=== PATIENT | female | born 1960 | race Two or more races ===

== ENCOUNTER 2017-12-15 15:01 | Emergency (ER) | payer OTHER ==
[~2017-12-15] VITALS: Ht 157.5 cm; Wt 43.1 kg
[~2017-12-15 15:01] MED LIST: AMOX500 PO; Bactrim Ds Tab1 EACH PO; CEPH500 PO; CHLO25 PO; CIPR250 PO; CIPR500 PO; CODGUAEL PO; CYCL10 PO; DOCU100 PO; FLUC150A PO; Ferrous Sulfat325 MG PO; HYDACE5 PO; IBUP400 PO; IBUP800 PO; LISI5 PO; Lisinopril2.5 MG; NALT50; OXYACE5T PO; PANT40 PO; PROM25 PO; QUET25 PO; RXPROM25 PO; TRAM50 PO; TRAZ50; Ultram50 MG PO; Zofran Odt4 MG SL; Zofran Odt8 MG SL; [UNRECOGNIZED DRUG - OTHER]
[2017-12-15] MEDS ORDERED: Pyridium200 MG PO (15:47)
[2017-12-15] MEDS ORDERED: CEPH500 PO (15:47)
== END 2017-12-15 15:57 | disposition home or self-care (01) ==
LOC: ER 15:01
DX: N39.0 Urinary tract infection, site not specified (principal); E11.9 Type 2 diabetes mellitus without complications; F17.210 Nicotine dependence, cigarettes, uncomplicated
CPT/HCPCS: 99283

== ENCOUNTER 2018-03-23 21:33 | Emergency (ER) | payer OTHER ==
[~2018-03-23] VITALS: Ht 154.9 cm; Wt 45.4 kg
[~2018-03-23 21:33] MED LIST changes: +Pyridium200 MG PO
== END 2018-03-24 02:15 | disposition home or self-care (01) ==
LOC: ER 21:33
DX: F19.10 Other psychoactive substance abuse, uncomplicated (principal); E11.9 Type 2 diabetes mellitus without complications; F17.210 Nicotine dependence, cigarettes, uncomplicated; Z88.5 Allergy status to narcotic agent; Z88.0 Allergy status to penicillin
CPT/HCPCS: 73502; 99283

== ENCOUNTER 2018-08-01 14:54 | Emergency (ER) | payer OTHER ==
[~2018-08-01] VITALS: Ht 154.9 cm; Wt 40.8 kg
== END 2018-08-01 15:18 | disposition left against medical advice (07) ==
LOC: ER 14:54
DX: F10.129 Alcohol abuse with intoxication, unspecified (principal); E11.9 Type 2 diabetes mellitus without complications; F17.210 Nicotine dependence, cigarettes, uncomplicated
CPT/HCPCS: 99284

== ENCOUNTER 2019-01-20 17:07 | Emergency (ER) | payer OTHER ==
[~2019-01-20] VITALS: Ht 152.4 cm; Wt 56.7 kg
[2019-01-20 17:59] LABS: Anion Gap 5 mmol/L (6-16); Blood Urea Nitrogen 10 mg/dL (8-24); Bun/Creatinine Ratio 18.2 (12.0-20.0); CO2, Blood 26 mmol/L (21-32); Calcium, Blood 8.2 mg/dL (8.5-10.1); Chloride, Blood 112 mmol/L (98-108); Creatinine, Blood 0.55 mg/dL (0.40-1.00); Glomerular Filtration Rate >60 (60-); Glucose, Blood 92 mg/dL (70-99); Potassium, Blood 3.6 mmol/L (3.5-5.5); Sodium, Blood 143 mmol/L (136-145)
== END 2019-01-20 20:15 | disposition home or self-care (01) ==
LOC: ER 17:07
PROVIDERS: Emergency Medicine
DX: F10.129 Alcohol abuse with intoxication, unspecified (principal); F41.9 Anxiety disorder, unspecified; E78.5 Hyperlipidemia, unspecified; E11.9 Type 2 diabetes mellitus without complications; F17.210 Nicotine dependence, cigarettes, uncomplicated; Z85.3 Personal history of malignant neoplasm of breast
CPT/HCPCS: 36415; 80048; 99284

== ENCOUNTER 2019-05-17 22:38 | Emergency (ER) | payer OTHER ==
[~2019-05-17] VITALS: Ht 157.5 cm; Wt 49.9 kg
[2019-05-17 23:00] LABS: BASOPHILS ABSOLUTE AUTO 0.04 K/mm3 (0.00-0.23); BASOPHILS PERCENT AUTO 1 % (0-2); EOSINOPHILS ABSOLUTE AUTO 0.05 K/mm3 (0.00-0.68); EOSINOPHILS PERCENT AUTO 1 % (0-6); Hematocrit 38.8 % (33.0-51.0); Hemoglobin 12.6 g/dL (11.5-16.0); IMMATURE GRAN ABSOLUTE AUTO 0.01 K/mm3 (0.00-0.10); IMMATURE GRAN PERCENT AUTO 0 % (0-1); LYMPHOCYTES PERCENT AUTO 59 % (21-46); MONOCYTES ABSOLUTE AUTO 0.38 K/mm3 (0.16-1.47); MONOCYTES PERCENT AUTO 7 % (4-13); Mean Corpuscular HGB 30.1 pg (26.0-34.0); Mean Corpuscular HGB Conc 32.5 g/dL (31.5-36.5); Mean Corpuscular Volume 93 fL (80-100); Mean Platelet Volume 9.4 fL (9.1-12.4); NEUTROPHILS ABSOLUTE AUTO 1.65 K/mm3 (1.96-9.15); NEUTROPHILS PERCENT AUTO 31 % (41-73); Platelet Count 217 K/mm3 (150-400); RDW Coefficient Variation 14.2 % (11.7-14.2); RDW Standard Deviation 48.6 fL (35.1-46.3); Red Blood Cell Count 4.18 M/mm3 (3.80-5.20); White Blood Cell Count 5.23 K/mm3 (4.00-11.30)
[2019-05-18] LABS: CPK Creatine Kinase 50 U/L (26-193); Creatine Kinase MB 1.3 ng/mL (0.0-3.6); Creatine Kinase MB Index 2.6 (0.0-4.0); Ethanol (Alcohol), Blood, Med 174 mg/dL
[2019-05-18 00:01] LABS: Alanine Aminotransfer (ALT/SGP 29 U/L (12-78); Albumin, Blood 3.2 g/dL (3.4-5.0); Albumin/Globulin Ratio 0.8 (0.8-1.8); Alk Phos 90 U/L (50-136); Anion Gap 7 mmol/L (6-16); Aspartate Aminotrans (AST/SGOT 27 U/L (12-37); Bilirubin, Total 0.2 mg/dL (0.1-1.0); Blood Urea Nitrogen 11 mg/dL (8-24); CO2, Blood 29 mmol/L (21-32); Calcium, Blood 8.7 mg/dL (8.5-10.1); Chloride, Blood 105 mmol/L (98-108); Creatinine, Blood 0.58 mg/dL (0.40-1.00); Globulin, Blood 3.8 g/dL (2.2-4.0); Glomerular Filtration Rate >60 (60-); Glucose, Blood 80 mg/dL (70-99); Potassium, Blood 4.1 mmol/L (3.5-5.5); Sodium, Blood 141 mmol/L (136-145)
[2019-05-18 00:16] LABS: U Amphetamine Screen Not Detected; U Barbituate Screen Not Detected; U Benzodiazapine Screen DETECTED; U Buprenorphine Screen Not Detected; U Cannabinoids Screen Not Detected; U Cocaine Screen Not Detected; U Methadone Screen Not Detected; U Methamphetamine Screen Not Detected; U Opiates Screen Not Detected; U Oxycodone Screen Not Detected; U Phencyclidine Screen Not Detected; U Propoxyphene Screen Not Detected
== END 2019-05-18 01:16 | disposition home or self-care (01) ==
LOC: ER 22:38
PROVIDERS: Emergency Medicine
DX: S01.81XA Laceration without foreign body of other part of head, initial encounter (principal); W18.30XA Fall on same level, unspecified, initial encounter; Z88.0 Allergy status to penicillin; Z88.8 Allergy status to other drugs, medicaments and biological substances; Z88.5 Allergy status to narcotic agent; F17.210 Nicotine dependence, cigarettes, uncomplicated; E11.9 Type 2 diabetes mellitus without complications; I10 Essential (primary) hypertension; Z85.3 Personal history of malignant neoplasm of breast; Z86.73 Personal history of transient ischemic attack (TIA), and cerebral infarction without residual deficits
CPT/HCPCS: 12001; 70450; 72125; 80053; 82550; 82553; 83605; 85025; 90471; 90714; 96374-59; 99284-25; G0480; J2405

== ENCOUNTER 2019-05-25 17:55 | Emergency (ER) | payer OTHER ==
[~2019-05-25] VITALS: Ht 157.5 cm; Wt 43.1 kg
== END 2019-05-25 18:17 | disposition home or self-care (01) ==
LOC: ER 17:55
DX: S01.81XD Laceration without foreign body of other part of head, subsequent encounter (principal); Z88.0 Allergy status to penicillin; Z88.5 Allergy status to narcotic agent; F17.210 Nicotine dependence, cigarettes, uncomplicated; E11.9 Type 2 diabetes mellitus without complications; Z85.3 Personal history of malignant neoplasm of breast; E78.00 Pure hypercholesterolemia, unspecified
CPT/HCPCS: 99282

== ENCOUNTER → 2019-09-12 | Outpatient (CLI) | payer OTHER ==
[~2019-09-12] MED LIST changes: +BENADRYL25 MG PO; +Pepcid40 MG PO; +Prednisone20 MG PO
[2019-09-12 09:39] LABS: BASOPHILS ABSOLUTE AUTO 0.04 K/mm3 (0.00-0.23); BASOPHILS PERCENT AUTO 1 % (0-2); EOSINOPHILS ABSOLUTE AUTO 0.07 K/mm3 (0.00-0.68); EOSINOPHILS PERCENT AUTO 1 % (0-6); Hemoglobin 13.5 g/dL (11.5-16.0); IMMATURE GRAN ABSOLUTE AUTO 0.02 K/mm3 (0.00-0.10); IMMATURE GRAN PERCENT AUTO 0 % (0-1); LYMPHOCYTES ABSOLUTE AUTO 1.36 K/mm3 (0.84-5.20); LYMPHOCYTES PERCENT AUTO 27 % (21-46); MONOCYTES PERCENT AUTO 6 % (4-13); Mean Corpuscular HGB 30.6 pg (26.0-34.0); Mean Corpuscular HGB Conc 32.9 g/dL (31.5-36.5); Mean Corpuscular Volume 93 fL (80-100); NEUTROPHILS ABSOLUTE AUTO 3.22 K/mm3 (1.96-9.15); NEUTROPHILS PERCENT AUTO 64 % (41-73); Platelet Count 322 K/mm3 (150-400); RDW Coefficient Variation 13.2 % (11.7-14.2); RDW Standard Deviation 44.6 fL (35.1-46.3); Red Blood Cell Count 4.41 M/mm3 (3.80-5.20); White Blood Cell Count 5.01 K/mm3 (4.00-11.30)
[2019-09-12 09:57] LABS: Alanine Aminotransfer (ALT/SGP 23 U/L (12-78); Albumin, Blood 3.7 g/dL (3.4-5.0); Alk Phos 124 U/L (40-126); Anion Gap 4 mmol/L (6-16); Aspartate Aminotrans (AST/SGOT 28 U/L (12-37); Bilirubin, Total 0.6 mg/dL (0.1-1.0); Blood Urea Nitrogen 14 mg/dL (8-24); Bun/Creatinine Ratio 18.4 (12.0-20.0); CO2, Blood 33 mmol/L (21-32); Calcium, Blood 8.8 mg/dL (8.5-10.1); Chloride, Blood 105 mmol/L (98-108); Creatinine, Blood 0.76 mg/dL (0.40-1.00); Free Thyroxine 1.09 ng/dL (0.70-1.60); Globulin, Blood 3.6 g/dL (2.2-4.0); Glomerular Filtration Rate >60 (60-); Glucose, Blood 97 mg/dL (70-99); Potassium, Blood 3.8 mmol/L (3.5-5.5); Sodium, Blood 142 mmol/L (136-145); Thyroid Stimulating Hormone 3.519 uIU/mL (0.360-4.800); Total Protein, Blood 7.3 g/dL (6.4-8.2)
[2019-09-13 08:07] LABS: HBSAG SCREEN Negative (Negative); HEP A AB, IGM Negative (Negative); HEP B CORE AB, IGM Negative (Negative); HEP C VIRUS AB >11.0 (0.0-0.9); HIV SCREEN 4TH GENERATION WRFX Non Reactive (Non Reactive)
[2019-09-17 07:08] LABS: CHLAMYDIA BY NAA Negative (Negative); GONOCOCCUS BY NAA Negative (Negative); TRICH VAG BY NAA Negative (Negative)
== END | disposition home or self-care (01) ==
LOC: LAB SHORT 09:33 → LAB EV 09:33
PROVIDERS: General Practice
DX: N76.0 Acute vaginitis (principal); R53.81 Other malaise; Z20.9 Contact with and (suspected) exposure to unspecified communicable disease
CPT/HCPCS: 80053; 80074; 83690; 84439; 84443; 85025; 86592; 87389; 87491; 87591; 87661

== ENCOUNTER 2019-09-25 17:39 | Emergency (ER) | payer OTHER ==
[~2019-09-25] VITALS: Ht 157.5 cm; Wt 42.6 kg
[~2019-09-25 17:39] MED LIST changes: -BENADRYL25 MG PO; -Pepcid40 MG PO; -Prednisone20 MG PO
[2019-09-25] MEDS ORDERED: BENADRYL25 MG PO (20:14)
[2019-09-25] MEDS ORDERED: Prednisone20 MG PO (20:14)
[2019-09-25] MEDS ORDERED: Pepcid40 MG PO (20:14)
== END 2019-09-25 20:32 | disposition home or self-care (01) ==
LOC: ER 17:39
DX: L50.9 Urticaria, unspecified (principal); M16.11 Unilateral primary osteoarthritis, right hip; F41.9 Anxiety disorder, unspecified; E11.9 Type 2 diabetes mellitus without complications; E78.00 Pure hypercholesterolemia, unspecified; F17.210 Nicotine dependence, cigarettes, uncomplicated; Z88.0 Allergy status to penicillin; Z88.5 Allergy status to narcotic agent; Z88.6 Allergy status to analgesic agent
CPT/HCPCS: 36415; 73502; 99283-25; J1100; Q0163

== ENCOUNTER 2021-03-18 14:32 | Emergency (ER) | payer OTHER ==
[~2021-03-18] VITALS: Ht 157.5 cm; Wt 45.4 kg
[~2021-03-18 14:32] MED LIST changes: +BENADRYL25 MG PO; +Pepcid40 MG PO; +Prednisone20 MG PO
== END 2021-03-18 17:26 | disposition left against medical advice (07) ==
LOC: ER 14:32
DX: M25.551 Pain in right hip (principal); G89.29 Other chronic pain; E11.9 Type 2 diabetes mellitus without complications; I10 Essential (primary) hypertension; F17.210 Nicotine dependence, cigarettes, uncomplicated; Z88.0 Allergy status to penicillin; Z88.5 Allergy status to narcotic agent; Z79.52 Long term (current) use of systemic steroids
CPT/HCPCS: 73502; 99284-25; A9270

== ENCOUNTER → 2021-12-14 | Outpatient (CLI) | payer OTHER | END | disposition home or self-care (01) | LOC: LAB SHORT 13:16 | DX: N39.0 Urinary tract infection, site not specified (principal) | CPT/HCPCS: 87077; 87086; 87186 ==

== ENCOUNTER 2022-02-07 10:16 | Emergency (ER) | payer OTHER ==
[~2022-02-07] VITALS: Ht 157.5 cm; Wt 45.4 kg
== END 2022-02-07 14:16 | disposition home or self-care (01) ==
LOC: ER 10:16
DX: S52.502A Unspecified fracture of the lower end of left radius, initial encounter for closed fracture (principal); X58.XXXA Exposure to other specified factors, initial encounter
CPT/HCPCS: 73110; 73562-RT; J1885

== ENCOUNTER → 2022-07-28 | Outpatient (CLI) | payer OTHER | END | disposition home or self-care (01) | LOC: LAB 16:25 → LAB SHORT 16:25 | DX: N39.0 Urinary tract infection, site not specified (principal) | CPT/HCPCS: 87077; 87086; 87147; 87186 ==

== ENCOUNTER → 2023-06-20 | Outpatient (CLI) | payer OTHER | LOC: LAB SHORT 15:21 → LAB 15:21 | DX: L03.113 Cellulitis of right upper limb (principal) | CPT/HCPCS: 87070; 87077; 87147; 87186; 87205 ==

== ENCOUNTER → 2024-09-19 | Outpatient (CLI) | payer OTHER ==
[~2024-09-19] MED LIST changes: +Acetaminophen500 MG PO; +IBUP600 PO
== END ==
LOC: LAB SHORT 17:09 → LAB 17:09
DX: R30.0 Dysuria (principal)
CPT/HCPCS: 87086

== ENCOUNTER 2025-02-10 08:45 | Inpatient (IN) | payer OTHER ==
[~2025-02-10] VITALS: Ht 157.5 cm; Wt 53.5 kg
[2025-02-10] VITALS (10 sets, daily range): BP systolic 91–125; BP diastolic 80–107
[2025-02-10] MEDS ORDERED: Adenosine 3 MG/ML 2 ML Vial ONE (08:56)
[2025-02-10] MEDS ORDERED: NS 1,000 ML IV ONE (08:56)
[2025-02-10] MEDS ORDERED: NS 1,000 ML IV SCH (09:05)
[2025-02-10] MEDS ORDERED: Piperacillin/Tazobactam Sod 4.5 GM in NS 100 ML IV ONE (09:45)
[2025-02-10] MEDS ORDERED: Vancomycin HCL 1,250 MG in NS 250 ML IV ONE (09:50)
[2025-02-10 10:04] LABS: BASOPHILS ABSOLUTE AUTO 0.04 K/mm3 (0.00-0.23); BASOPHILS PERCENT AUTO 0 % (0-2); EOSINOPHILS ABSOLUTE AUTO 0.01 K/mm3 (0.00-0.68); EOSINOPHILS PERCENT AUTO 0 % (0-6); Hematocrit 41.4 % (33.0-51.0); Hemoglobin 13.6 g/dL (11.5-16.0); IMMATURE GRAN ABSOLUTE AUTO 0.05 K/mm3 (0.00-0.10); IMMATURE GRAN PERCENT AUTO 0 % (0-1); LYMPHOCYTES ABSOLUTE AUTO 0.99 K/mm3 (0.84-5.20); LYMPHOCYTES PERCENT AUTO 9 % (21-46); MONOCYTES ABSOLUTE AUTO 0.92 K/mm3 (0.16-1.47); MONOCYTES PERCENT AUTO 8 % (4-13); Mean Corpuscular HGB 29.2 pg (26.0-34.0); Mean Corpuscular HGB Conc 32.9 g/dL (31.5-36.5); Mean Corpuscular Volume 89 fL (80-100); Mean Platelet Volume 10.4 fL (9.1-12.4); NEUTROPHILS ABSOLUTE AUTO 9.36 K/mm3 (1.96-9.15); NEUTROPHILS PERCENT AUTO 82 % (41-73); Platelet Count 241 K/mm3 (150-400); RDW Coefficient Variation 15.1 % (11.7-14.2); RDW Standard Deviation 48.1 fL (35.1-46.3); Red Blood Cell Count 4.65 M/mm3 (3.80-5.20); White Blood Cell Count 11.37 K/mm3 (4.00-11.30)
[2025-02-10 10:23] LABS: International Normalized Ratio 1.36; Prothrombin Time Results 14.2 Sec (9.7-11.5)
[2025-02-10 10:25] LABS: Magnesium, Blood 1.5 mg/dL (1.6-2.4)
[2025-02-10 10:26] LABS: Albumin, Blood 2.4 g/dL (3.4-5.0); Albumin/Globulin Ratio 0.8 (0.8-1.8); Bilirubin, Total 1.2 mg/dL (0.1-1.0); Bun/Creatinine Ratio 32.4 (12.0-20.0); Calcium, Blood 8.2 mg/dL (8.5-10.1); Creatinine, Blood 0.65 mg/dL (0.40-1.00); Globulin, Blood 3.2 g/dL (2.2-4.0); Potassium, Blood 4.3 mmol/L (3.5-5.5); Total Protein, Blood 5.6 g/dL (6.4-8.2)
[2025-02-10 10:47] LABS: Influenza A, PCR NEGATIVE (NEGATIVE); Influenza B, PCR NEGATIVE (NEGATIVE); Resp Syncytial Virus, PCR NEGATIVE (NEGATIVE); SARS-Cov-2 (COVID-19) PCR, MMC NEGATIVE (NEGATIVE)
[2025-02-10] MEDS ORDERED: Morphine Sulfate 4 MG/1 ML Injection IV ONE (11:25)
[2025-02-10] MEDS ORDERED: Acetaminophen 325 MG TABLET PO PRN (11:35)
[2025-02-10] MEDS ORDERED: Ondansetron 4 MG TAB PO PRN (11:40)
[2025-02-10] MEDS ORDERED: Magnesium Hydroxide Conc 10 ML UDC PO PRN (11:40)
[2025-02-10] MEDS ORDERED: FentaNYL Citrate 50 MCG/ML 2 ML Injection IV PRN (11:40)
[2025-02-10 11:42] LABS: Anti-Xa UFH, PHA Monitoring <0.10 IU/mL
[2025-02-10] MEDS ORDERED: Heparin Sodium 5000 Units/ML 1ML MDV IV ONE (12:05)
[2025-02-10] MEDS ORDERED: Mag Sulfate 1 GM/D5% 100ML 100 ML IV STA (12:05)
[2025-02-10] MEDS ORDERED: Heparin Sodium,Porcine/0.5 NS 500 ML IV SCH (12:05)
[2025-02-10] MEDS ORDERED: Lactated Ringer's 1,000 ML IV SCH (13:00)
[2025-02-10] MEDS ORDERED: Magnesium Sulf 2 GM/Water 50ML 50 ML IV ONE (13:55)
[2025-02-10] MEDS ORDERED: Empagliflozin 10 MG TAB PO SCH (15:00)
[2025-02-10] MEDS ORDERED: Furosemide 10 MG / ML 2ML Vial IV ONE (16:00)
[2025-02-10] MEDS ORDERED: Azithromycin 500 MG in NS 250 ML IV SCH (16:48)
--- NOTE | 2025-02-10 17:15 | NUR ---
Pt. is awke in her bed when she welomced my visit. Pt. is pleasant. Daughter is at bedside. Facilitated a life review and listened with empathy and a calming presence. Considered matters of kavya and belief. Pt. and daughter verbalized that they recognized this patch driller from a scientologist in the community. Pt. displayed evidence of being alert and aware. Prayed with the Pt. adn daughter. Pt. verbalized gratitude for the spiritual care visit and welcomed this patch driller to return.
[2025-02-10] MEDS ORDERED: LORazepam 2 MG/ML 1ML Injection ONE (17:56)
[2025-02-10] MEDS ORDERED: CefTRIAXone Sodium 1,000 MG in NS 100 ML IV SCH (18:00)
[2025-02-10] MEDS ORDERED: Tenecteplase 50 MG / Kit IV ONE (18:05)
--- NOTE | 2025-02-10 18:46 | NUR ---
Code Blue | Spiritual Care | TOD Pt. had coded. This flexo folder gluer operator was directed to the daughter who displayed evidence of extreme emotion. Daughter was not responsive to spiritual care or empathetic nursing care. Daughter gather Pts. belongings, left a phone number and verbalized "call be if she lives." This flexo folder gluer operator and palliative care nurse pursued the daughter on foot until she left the hospital campus. Upon returning to bedside, where the hospital code team was still working on the Pt. Prayers were made for the Pt. EULALIA was called at [phone]. No family were present.
--- NOTE | 2025-02-10 18:47 | NUR ---
RESPONDED TO CODE BLUE. CPR IN PROGRESS ON ARRIVAL. DAUGHTER ROBYN PRESENT. ROBYN WAS LEFT HER PHONE NUMBER WITH STAFF STATING "CALL ME IF SHE LIVES", THEN WALKED BRISKLY FROM ICU FLOOR. INSTRUMENT AND CONTROL SERVICE PERSON AND THIS RN ATTEMPTED TO TALK TO ROBYN BUT SHE WOULD NOT STOP WALKING WHEN REQUESTED TO WAIT. FOLLOWED ROBYN OUT OF CONCERN FOR HER SHE WAS YELLING LOUDLY AND CRYING. ROBYN WALKED OUT OF HOSPITAL FROM ADMITTING ENTRY AND SECURITY SAW US FOLLOWING AND REQUESTED IF THEY SHOULD BEADWORKER WALKING AWAY FROM US. BRIEFLY EXPLAINED WE WERE TRYING TO TALK TO HER. SECURITY WERE IN A ELECTRIC CART AND CAUGHT UP TO HER BUT SHE CONTINUED TO REFUSE TO STOP. ROBYN WALKED OFF PROPERTY GROUNDS. WAS UNABLE TO CONTACT ROBYN BY PHONE NUMBER SHE LEFT.
--- NOTE | 2025-02-10 18:55 | NUR ---
SHIFT SUMMARY/CODE BLUE PT ARRIVED FROM ER ALERT AND ORIENTED COMMUNICATING APPROPRIATELY W STAFF. PT REPORTING MILD CHEST PAIN UPON ARRIVAL THAT SHE STATED WAS UNCHANGED SINCE ARRIVING TO THE HOSPITAL. PT MAINTAINING SPO2 >92% ON 2L NC. PT ARRIVED W MOTTLING ON BILATERAL KNEES EXTENDING SEVERAL INCHES UP HER THIGH. PT'S MONITOR SHOWING ST 100-130 W ACTIVITY. BP WNL AND STABLE. PT'S DAUGHTER HAD ARRIVED SHORTLY AFTER THE PT'S ARRIVAL TO ICU. PT'S DAUGHTER UPDATED ON PT'S CONDITION AND THE TREATMENT PLAN. PT GIVEN DINNER TRAY AND SHORTLY INTO HER MEAL THE PT BEGAN TO C/O NAUSEA, PT MEDICATED W ZOFRAN BY KILN DRAWER KARA. PT REPORTING CONTINUED CHEST PAIN THAT WAS WORSE W MOVEMENT. PT THEN PRESENTED HAVING A SEIZURE W BILAT ARMS EXTENDED AND EYES FIXED UPWARD. ATIVAN WAS RETRIEVED THE PT BECAME HYPOXIC AND NO PULSE WAS FELT, DANIEL NOYOLA WAS CALLED. CHEST COMPRESSIONS WERE STARTED PT'S DAUGHTER TURNED HER BACK TO THE PT SITTING ON THE FLOOR BRIEFLY. YEIMI PINO CAME TO THE DAUGHTERS SIDE FOR COMFORT THE DAUGHTER GRABBED THE PT'S BACKPACK AND LEFT THE ICU. STAFF FOLLOWED THE DAUGHTER OUT BUT DAUGHTER VISIBLY UPSET STATING, "CALL ME IF SHE DIES". STAFF RETURNED TO THE THE CODE WAS BEING PERFORMED REPORTING WHAT THE DAUGHTER HAD SAID. SEE CODE BLUE SHEET FOR DETAILS.
--- NOTE | 2025-02-10 19:06 | NUR ---
Call Back. Nursing staff requested this steel manager to return to bedside as family are present. The request came at the end of the shift, while charting of Pt. visits. After clocking out. This steel manager paused and clocked back in as "call back". Upon returning to the room family members had departed.
--- NOTE | 2025-02-10 19:17 | NUR ---
BELONGINGS. PREVIOUS NOTE STATES PT'S DAUGHTER TOOK THE PT'S BACKPACK SHE LEFT THE HOSPITAL. PT'S SON IN LAW TOOK PT'S CLOTHES AND SHOES AFTER HE SAID GOOD BY TO THE PT. PT'S PHONE FOUND IN BED AND DAUGHTER SANDEEP CONTACTED AND NOTIFIED THAT IT WAS FOUND SHE HAD CALLED ASKING ABOUT THE PT'S AND IF HER PHONE WAS STILL HERE. SANDEEP EXPRESSING INTENT ON COMING BACK TO RETRIEVE THE PT'S PHONE, MANAGER INTENSIVE CARE HEIDI NOTIFIED.
[2025-02-10] MEDS ORDERED: EPINEPhrine HCl 0.1 MG/ML 10ML SYR XX ONE (20:16)
[2025-02-10] MEDS ORDERED: Docusate Sodium 100 MG Cap PO SCH (21:00)
[2025-02-10] MEDS ORDERED: Sennosides 8.6 MG Tab PO SCH (21:00)
--- NOTE | 2025-02-10 21:49 | NUR ---
BELONGINGS: DAUGHTER MIQUEL CALLED TO SAY HER FIANCE ISIDRO CORTEZ WOULD COME TO CLINICAL NURSING MANAGER HER MOTHER'S CELL PHONE. PHONE IS GIVEN TO ISIDROEMY. LAFLEUR PHONE # .
[2025-02-11 21:02] LABS: HEPATITIS A ANTIBODY, IGM Negative (Negative); HEPATITIS B CORE ANTIBODY, IGM Negative (Negative); HEPATITIS B SURFACE ANTIGEN Negative (Negative); HEPATITIS C AB CIA INTERP High Pos (Negative); HEPATITIS C ANTIBODY CIA INDEX >11.00 IV
[2025-02-12 12:39] LABS: HCV QNT BY NAAT (IU/ML) 372000 IU/mL; HCV QNT BY NAAT (LOG IU/ML) 5.57; HCV QNT BY NAAT INTERP Detected (Not Detected)
== END 2025-02-10 18:38 | DRG 208 ==
LOC: ER 08:45 → ICUE 11:34
PROVIDERS: Emergency Medicine; ADMIT Internal Medicine
PROC: 5A1935Z Respiratory Ventilation, Less than 24 Consecutive Hours (ICD-10-PCS; principal; 2025-02-10)
PROC: 0BH17EZ Insertion of Endotracheal Airway into Trachea, Via Natural or Artificial Opening (ICD-10-PCS; 2025-02-10)
PROC: 5A12012 Performance of Cardiac Output, Single, Manual (ICD-10-PCS; 2025-02-10)
PROC: 3E03317 Introduction of Other Thrombolytic into Peripheral Vein, Percutaneous Approach (ICD-10-PCS; 2025-02-10)
PROC: 3E03329 Introduction of Other Anti-infective into Peripheral Vein, Percutaneous Approach (ICD-10-PCS; 2025-02-10)
PROC: 3E033XZ Introduction of Vasopressor into Peripheral Vein, Percutaneous Approach (ICD-10-PCS; 2025-02-10)
DX: I26.94 Multiple subsegmental thrombotic pulmonary emboli without acute cor pulmonale (principal); I50.21 Acute systolic (congestive) heart failure; J96.01 Acute respiratory failure with hypoxia; E87.1 Hypo-osmolality and hyponatremia; E87.21 Acute metabolic acidosis; Z59.00 Homelessness unspecified; R04.2 Hemoptysis; I47.10 Supraventricular tachycardia, unspecified; I42.0 Dilated cardiomyopathy; I82.402 Acute embolism and thrombosis of unspecified deep veins of left lower extremity; I26.99 Other pulmonary embolism without acute cor pulmonale; F17.210 Nicotine dependence, cigarettes, uncomplicated; R07.9 Chest pain, unspecified; R56.9 Unspecified convulsions; E83.42 Hypomagnesemia; R79.89 Other specified abnormal findings of blood chemistry; K76.89 Other specified diseases of liver; I11.0 Hypertensive heart disease with heart failure; E11.9 Type 2 diabetes mellitus without complications; F41.9 Anxiety disorder, unspecified; E78.5 Hyperlipidemia, unspecified; F10.20 Alcohol dependence, uncomplicated; F15.90 Other stimulant use, unspecified, uncomplicated; Z91.148 Patient's other noncompliance with medication regimen for other reason; Z85.3 Personal history of malignant neoplasm of breast; Z88.0 Allergy status to penicillin; Z88.5 Allergy status to narcotic agent; Z90.10 Acquired absence of unspecified breast and nipple; Z98.890 Other specified postprocedural states; Z85.79 Personal history of other malignant neoplasms of lymphoid, hematopoietic and related tissues; Z86.73 Personal history of transient ischemic attack (TIA), and cerebral infarction without residual deficits; Z92.3 Personal history of irradiation
CPT/HCPCS: 0241U; 31500; 36415; 71045; 71260; 76705; 80053; 83605; 83690; 83735; 83880; 84145; 84484; 85025; 85520; 85610; 85730; 92950; 93005; 93010; 93970; 96360; 96361; A9270; C8929; J0153; J0456; J0696; J1644; J1938; J2060; J2270; J2543; J3010; J3370; J3475; J7030; J7050; Q9957; Q9967